=== PATIENT | male | born 1970 | race Caucasian/White ===

== ENCOUNTER 2025-03-03 16:45 | Emergency (ER) | payer BC, SELFPAY ==
[2025-03-03 16:46] VITALS: BP 159/97; PULSE 70; RESP 18; TEMP 36.4; O2SAT 97; BMI 38.4
--- NOTE | 2025-03-03 17:18 | EX.ED.GENINJ ---
HPI History of Present Illness Chief Complaint: Laceration Narrative Narrative: This is a 54-year-old male who presents to the emergency department for a right third digit injury. The patient was at home using a table saw when he accidentally lacerated the distal aspect of the left third digit. M patient has nailbed displacement bleeding from the distal fingertip. He is also complaining of pain in that finger. Last tetanus was about 10 years ago. PFSH PFSH Medical History no medical history Home Medications ?Medication ?Instructions ?Recorded ?Last Taken ?Type cephalexin 500 mg capsule 500 mg PO Q6H 7 days #28 caps 03/03/25 Unknown Rx oxycodone-acetaminophen 5 mg-325 1 tab PO Q6H PRN pain 4 days #16 03/03/25 Unknown Rx mg tablet (Percocet) tabs Allergy/AdvReac Type Severity Reaction Status Date / Time No Known Allergies Allergy Verified 03/03/25 16:46 Family History no significant family his Surgical History no surgical history Social History Smoking Status: Never smoker ROS ROS ED Musculoskeletal Musculoskeletal: Reports arthralgias Integumentary Reports other Details: Finger laceration/injury Hematologic/Lymphatic Hematologic/Lymphatic: Denies easy bleeding EXAM Physical Exam Const Vital Signs: 03/03/25 16:46 03/03/25 20:33 Temperature 97.6 F L 98.8 F Temperature Source Temporal Pulse Rate 70 90 Respiratory Rate 18 16 Blood Pressure 159/97 H 140/88 H Blood Pressure Mean 117 105 Pulse Ox 97 99 Oxygen Delivery Method Room Air Positive well nourished and well developed Constitutional Narrative: Patient holding right hand, wincing in pain General Appearance ED: well developed HEENT atraumatic Eyes PERRL and EOMs intact bilaterally Neck full ROM Chest Wall inspection of chest normal Resp normal respiratory effort Cardio regular rhythm Extremity Extremity Narrative: Laceration through the distal aspect of the dorsum of the left third digit transversing across soft tissues and displacing the nail PROC Procedures Lacerations right third digit: Length: 0.79 in Depth: Skin Shape: Macerated Prep: Betadine and - Laceration repair: Irrigated, Nerve block (Digital nerve block with 1% lidocaine of the right third digit with 10 cc) and Wound explored Number of Sutures/[place]: 7 Suture Information: Ethilon, Simple and 4-0 Comment: Nail was removed. Bacitracin placed over laceration. Xeroform gauze placed over the wound. Gauze and finger splint placed over the right third digit MDM MDM MDM Narrative Medical decision making narrative: Patient presented with a wound to the distal right third finger from a table saw at home. He was given oral analgesia in the emergency department, oxycodone, and tetanus was updated. X-ray imaging shows a mildly comminuted fracture at the distal phalanx of the middle finger without evidence of intra-articular expansion. With a soft tissue laceration this is an open fracture. Patient was given IV Ancef in the emergency department. I then did a digital block with lidocaine to numb the third digit on the right hand. Placed a finger tourniquet at the base of the right third digit and removed the nail. Underneath the nail there was a very macerated laceration with avulsed tissue and a stellate laceration. I was able to pull together the distal edge of the tissue up to the nailbed to loosely approximate the wound. Bacitracin and Xeroform was placed over the wound followed by gauze dressing. The finger was then placed in a finger splint. Patient tolerated this procedure well. Patient will be placed on prophylactic antibiotics, Keflex on an outpatient basis. He understands he is going to need to follow-up with a hand surgeon/plastic surgery. I gave him contact follow-up information for Dr. Motta. Patient instructed to call the office on Thursday for follow-up as he will likely need a revision of this hand wound. Sutured wound care discussed with the patient. He was also given a prescription for analgesia for pain control. Return indications discussed. All questions answered. Patient discharged home. Radiography Diagnostic Testing: Clinical Impression(s) from Imaging Studies Hand X-Ray 03/03/25 17:32 IMPRESSION: There is a mildly comminuted fracture at the distal phalanx of the middle finger, without evidence of intra-articular extension. Punctate radiodensities extend within 3 mm of the soft tissue defect/injury at the radial aspect of the fingertip. Correlate for clinical evidence of open fracture. Reading Location: [id number] Discharge Plan Triage Chief Complaint: Laceration ED Provider: Missy Tanner Dx/Rx/DC Orders Clinical Impression: Open fracture of distal phalanx of digit of right hand, Laceration of right little finger with damage to nail Instructions: Suture Care, ED Fracture, Finger, Open Prescriptions: New oxycodone-acetaminophen [Percocet] 5-325 mg tablet 1 tab PO Q6H PRN (Reason: pain) 4 Days Qty: 16 0RF cephalexin 500 mg capsule 500 mg PO Q6H 7 Days Qty: 28 0RF Primary Care Provider: Kirill Roberts Referrals: Kirill Roberts MD [Primary Care Provider, Family Practice] Olu Motta MD [Med Staff - Active Staff, Plastic Surgery] - As soon as possible Print Language: Serbian Disposition Disposition: Home, Self Care Discharge Date/Time: 03/03/25 20:34
--- NOTE | 2025-03-03 17:32 | RAD_ITS ---
PROCEDURE: HAND MIN 3 VIEWS 03/03/2025 REASON FOR EXAM: RIGHT THIRD DISTAL DIGIT LACERATION/INJURY TECHNIQUE: Procedure Code: LETITIA Modality: DX Procedure: HAND MIN 3 VIEWS Laterality: Right COMPARISON: None FINDINGS: See below. RAD/Hand Min 3 Views IMPRESSION: There is a mildly comminuted fracture at the distal phalanx of the middle finge r, without evidence of intra-articular extension. Punctate radiodensities extend within 3 mm of the soft tissue defect/injury at the radial aspect of the fingertip. Correlate for clinical evidence of open fracture. Reading Location: [id number]
[2025-03-03] MEDS: Cefazolin 2 GM in 0.9% Normal Saline (100mL Bag) 100 ML IV (18:19)
[2025-03-03] MEDS: Lidocaine 1% (20 ml mdv) 20 ML Vial INFILT (18:49)
[2025-03-03 20:33] VITALS: BP 140/88; PULSE 90; RESP 16; TEMP 37.1; O2SAT 99
== END 2025-03-03 20:34 | disposition home or self-care (01) ==
PROVIDERS: Emergency Provider Emergency Medicine; PCP Family Medicine; Visit Provider Emergency Medicine
DX: S62.662B Nondisplaced fracture of distal phalanx of right middle finger, initial encounter for open fracture (principal); S61.316A Laceration without foreign body of right little finger with damage to nail, initial encounter; W29.8XXA Contact with other powered hand tools and household machinery, initial encounter; Y92.009 Unspecified place in unspecified non-institutional (private) residence as the place of occurrence of the external cause; Z23 Encounter for immunization
CPT/HCPCS: 11730; 12001; 73130; 90471; 90715; 96365; 99283